=== PATIENT | male | born 1935 | race Caucasian/White ===

== ENCOUNTER 2020-06-26 10:26 | Day surgery (SDC) | payer MEDICARE, BC, SELFPAY ==
[2020-06-26] MEDS: LACTATED RINGERS 1,000 ML 200 ML IV (11:32)
[2020-06-26 11:35] VITALS: BP 154/84; PULSE 80; RESP 16; TEMP 36.3; O2SAT 97; BMI 29.3
--- NOTE | 2020-06-26 13:27 | PM.PREOP ---
Pre-operative Note COVID-19 COVID-19 status: Negative Interval Note History & Physical reviewed/Exam performed by Physician: Yes Changes to H&P: No ASA Class (for procedural sedation): II
[2020-06-26] MEDS: fentaNYL 250 MCG/5 ML INJ IV (13:38)
[2020-06-26] MEDS: MIDAZOLAM 5 MG/5 ML VIAL IV (13:38)
[2020-06-26] MEDS: LIDOCAINE 4% SOLN 50 ML 20 ML TOP (13:53)
--- NOTE | 2020-06-26 13:53 | PM.OP.ENDO ---
Operative Date/Time/Diagnoses Date of procedure: 06/26/20 Time of procedure: 13:53 Pre-op diagnosis: GI bleed Post-op diagnosis: same Procedure & Clinicians Study performed: aborted colonoscopy EGD Same procedure as scheduled: Yes Indications: 84-year-old man with melanotic stool his colostomy back status post Savi's here for EGD and colonoscopy Surgeon: Davis Mcintyre Procedure Notes SCOAP/Timeout: Performed Procedure in detail: Patient placed in left lateral decubitus position. Time out was performed. Procedural sedation was administered with Versed and Fentanyl. A bite block was placed. the scope was inserted into the mouth and advanced through the esophagus and into the stomach. The pylorus was intubated and normal in appearance. The scope was retroflexed within the stomach and there was a small hiatal hernia. No ulcers, or gastritis. The scope was withdrawn into the esophagus the Z line was seen at 40 cm from the incisions. There was no Doll's esophagitis or masses or strictures. Stomach was desufflated and scope removed. Patient tolerated procedure well. The colonoscopy scope was then placed into the colostomy the the lumen was insufflated with air. The scope was carefully advanced forward. The preparation of the colon was extremely poor I was unable to adequately visualize the lumen and I aborted the procedure after several minutes of copious irrigation which failed to improve the conditions. Scope withdrawal time: Not applicable Sedation minutes: 15 Findings: other findings (Poor preparation) Specimen(s): none sent Complications: none Impression: Aborted colonoscopy secondary to poor preparation Post-procedure Recommendations: Other recommendation Plan for aftercare: Will need to reschedule colonoscopy after adequate preparation Disposition: same day surgery
[2020-06-26 13:55] VITALS: BP 144/80; PULSE 76; RESP 12; TEMP 36.3; O2SAT 97
[2020-06-26 14:00] VITALS: BP 131/82; PULSE 78; RESP 13; O2SAT 95
[2020-06-26 14:10] VITALS: BP 121/74; PULSE 82; RESP 20; O2SAT 94
[2020-06-26 14:18] VITALS: BP 134/68; PULSE 66; RESP 15; TEMP 36.4; O2SAT 96
[2020-06-26 14:49] VITALS: BP 134/78; PULSE 69; RESP 15; TEMP 36.4; O2SAT 97
== END 2020-06-26 14:50 | disposition home or self-care (01) ==
PROVIDERS: Family Provider Family Medicine; PCP Family Medicine; Referring Provider Surgery; Visit Provider Surgery
PROC: 0DJ08ZZ Inspection of Upper Intestinal Tract, Via Natural or Artificial Opening Endoscopic (ICD-10-PCS; CPT 43235; principal; 2020-06-26 12:15)
PROC: 0DJD8ZZ Inspection of Lower Intestinal Tract, Via Natural or Artificial Opening Endoscopic (ICD-10-PCS; CPT 45378; 2020-06-26 12:15)
DX: K92.1 Melena (principal); I10 Essential (primary) hypertension; F03.90 Unspecified dementia, unspecified severity, without behavioral disturbance, psychotic disturbance, mood disturbance, and anxiety; E66.9 Obesity, unspecified; I25.2 Old myocardial infarction; Z93.3 Colostomy status; Z85.038 Personal history of other malignant neoplasm of large intestine; K44.9 Diaphragmatic hernia without obstruction or gangrene; Z53.8 Procedure and treatment not carried out for other reasons
CPT/HCPCS: 43235; 44388; 99152; J2250; J3010